=== PATIENT | female | born 1955 | race Caucasian/White ===

== ENCOUNTER 2018-04-08 09:48 | Outpatient (CLI) | payer OTHER ==
--- NOTE | 2018-04-08 14:08 | CT ---
CT THORACIC SPINE WITHOUT CONTRAST: INDICATIONS: History of back pain for two to three months with popping in the back with a history of spinal surger y. COMPARISON: Prior MRI of the thoracic spine, dated 04/22/2013. FINDINGS: There is scattered emphysema involving the lungs. There is scattered vascular calcification involvin g the thoracic aorta. No acute fracture or subluxation is evident. An ACDF plate is again seen at C 7-T1 with interbody cages seen at C6-C7 and C7-T1. There is mild multilevel disk degenerative diseas e that does not appear appreciably changed from the comparison MRI examination. There is exuberant f acet osteoarthrosis at T11-T12, greater on the right, causing some minimal to mild right osseous neur al foraminal encroachment that is likely stable on retrospective review. The facet osteoarthritic ch lamont is better seen on the current CT evaluation. No appreciable osseous central canal narrowing is grossly evident. No additional area of osseous neural foraminal narrowing is demonstrated. IMPRESSION: 1. Stable multilevel spondylosis of the thoracic spine. 2. There is moderate to severe facet osteoarthritic change at T11-T12, with some minimal to mild rig ht neural foraminal encroachment that, likely, on retrospective review of the prior MRI examination i s stable. The degree of facet osteoarthritic change is most evident on today's CT examination. 3. T1-T2 anterior cervical diskectomy and fusion plate appears similar to the comparison MRI examina tion. 4. Intervertebral disk cages at C6-C7 and at C7-T1. POS: [facility]
--- NOTE | 2018-04-08 15:51 | CT ---
CT LUMBAR SPINE NONCONTRAST: INDICATIONS: Low back pain. FINDINGS: T12-L1/L1-L2: At the T12-L1 and L1-L2 levels, there is no significant compromise of the central munira l or neural foramina. L2-L3: Disk osteophyte produces mild to moderate central canal stenosis. There is a lateralized dis k osteophyte component on the left, spanning the left foraminal through left extraforaminal zone, whi ch does result in moderate left foraminal stenosis. No high grade right foraminal compromise. L3-L4: Broad-based disk osteophyte, asymmetric to the left, results in moderate central canal stenos is, when combined with degenerative bilateral facet hypertrophy. There is mild to moderate bilateral neural foraminal narrowing. L4-L5: There is moderate central canal stenosis, as the result of an asymmetric right broad-based di sk osteophyte, with moderate right and mild left neural foraminal narrowing. L5-S1: Moderate central canal stenosis, as the result of a broad-based disk osteophyte. There is ga s vacuum phenomenon of the disk space. Moderate right and mild to moderate left neural foraminal nelson nosis is present. At the imaged retroperitoneum, there is vascular calcification. IMPRESSION: Multilevel degenerative change of the lumbar spine, as discussed above. POS: [facility]
== END 2018-04-08 09:49 | disposition home or self-care (01) ==
LOC: TBSIIMAG 09:48
PROVIDERS: ATTEND Neurological Surgery
DX: M54.5 Low back pain (principal); M54.6 Pain in thoracic spine; M47.814 Spondylosis without myelopathy or radiculopathy, thoracic region; M47.816 Spondylosis without myelopathy or radiculopathy, lumbar region; Z98.1 Arthrodesis status; Z98.890 Other specified postprocedural states
CPT/HCPCS: 72128; 72131

== ENCOUNTER 2018-11-18 10:14 | Outpatient (CLI) | payer OTHER ==
--- NOTE | 2018-11-18 11:33 | RAD ---
THORACIC SPINE 4 VIEWS: Date: 11/18/18 HISTORY: back pain FINDINGS: Postoperative changes in the cervical spine noted. There appear to be anterior plate and screws and d isc implant at C7-T1. Thoracic vertebra maintain height and alignment. Minimal degenerative spurring. Disc spaces are preserved. No compression deformity. No lytic or blastic process. No change in align ment of thoracic vertebra seen with flexion or extension. IMPRESSION: Postoperative changes in the cervical and cervicothoracic region as described. Unremarkable thoracic spine. POS: [facility]
--- NOTE | 2018-11-18 11:34 | RAD ---
LUMBAR SPINE THREE VIEWS: HISTORY: Back pain. Lumbar radiculopathy. TECHNIQUE: Lateral views obtained with neutral, flexion, and extension. FINDINGS: Lumbar vertebrae maintain height. Moderate degenerative changes are present throughout. Loss of dis k space is prominent at L3-L4. Slight posterior listhesis at L3-L4. This listhesis reduces slightly with extension. Facet hypertrophy is prominent. Osteophytes are prominent at L3-L4. IMPRESSION: Degenerative changes, as described. POS: [facility]
== END 2018-11-18 10:15 | disposition home or self-care (01) ==
LOC: TBSIIMAG 10:14
PROVIDERS: ATTEND Neurological Surgery
DX: M47.814 Spondylosis without myelopathy or radiculopathy, thoracic region (principal); M47.26 Other spondylosis with radiculopathy, lumbar region; Z98.890 Other specified postprocedural states
CPT/HCPCS: 72072; 72100

== ENCOUNTER 2018-12-02 13:35 | Outpatient (CLI) | payer OTHER ==
--- NOTE | 2018-12-02 16:15 | MRI ---
MRI LUMBAR SPINE NONCONTRAST: DATE: 12/02/18 HISTORY: 63-year-old female with lumbar spondylosis and lumbar radiculopathy. Low back pain that radiates to b ilateral lower extremities. COMPARISON: 08/10/14. FINDINGS: Transitional levels at thoracolumbar junction and lumbosacral junction. After review of CT of thoraci c spine of 04/08/[address] of lumbar spine of 04/08/18, it is evident that the level with tiny bilate ral accessory ribs is L1. The level of greatest lordotic angulation is L5-S1. The last lumbar type ve rtebra is L5, standard type. S1 is slightly partially lumbarized, with a partially developed S1-2 int ervertebral disc space. Vertebral body heights are maintained. 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 Interval development of Modic type I end plate narrow martinez es involving the left peripheral aspect of the L2-3 level. No other major bone marrow signal abnormal ity otherwise. There has been interval growth of laterally located right renal cyst, which currently measures 2.8 cm. T12-L1: Normal. L1-2: Essentially normal. L2-3: Interval development of mild disc space narrowing, worsening of diffuse disc bulge, and minimal degenerative retrolisthesis of L2 on L3. The disc bulge flattens the ventral aspect of the thecal sa c causing mild to moderate thecal sac stenosis. Mild central spinal canal stenosis. Interval developm ent of left lateral and far lateral broad based disc herniation/osteophytic bar complex that mildly d isplaces the left psoas muscle. A portion of this encroaches upon the left neural foramen causing mil d left neural foraminal stenosis. No right neural foraminal stenosis. L3-4: Mild disc space narrowing unchanged. Diffuse disc bulge unchanged. Mild left neural foraminal s tenosis. Mild to moderate right neural foraminal stenosis. Mild to moderate right degenerative facet hypertrophy. Mild to moderate central spinal canal stenosis with trefoil configuration. Moderate to s evere thecal sac stenosis. No significant interval change. L4-5: Again noted is the prominent Schmorl's node at inferior end plate of L4. Disc space maintained. Mild disc bulge. Moderate ligamentum flavum thickening. Moderate right facet DJD. Mild left facet DJ D. Asymmetrical right lateral and far lateral broad based chronic disc herniation. Moderate right nina ral foraminal stenosis. No significant left neural foraminal stenosis. Effacement of the right latera l aspect of thecal sac. Moderate central spinal canal stenosis. Moderate to severe thecal sac stenosi s, especially on the right. No major interval change. L5-S1: Moderate ligamentum flavum thickening. Somewhat severe right facet DJD and moderate left facet DJD. Diffuse disc bulge. Minimal disc space narrowing. Moderate to severe right neural foraminal nelson nosis. Moderate left neural foraminal stenosis. High grade right lateral recess stenosis, worse than before. Moderate central spinal canal stenosis and moderate to severe thecal sac stenosis, worse than before. IMPRESSION: 1. Lumbar spondylosis with degenerative disc disease and facet osteoarthrosis of varying degrees , worse than before at some levels. 2. Interval worsening of thecal sac stenosis and right lateral recess stenosis at L5-S1. 3. Moderate central spinal canal stenosis at L3-4 and L4-5, unchanged since 2015. MAGO De La Cruz POS: [facility]
== END 2018-12-02 13:36 | disposition home or self-care (01) ==
LOC: TBSIIMAG 13:35
PROVIDERS: ATTEND Neurological Surgery
DX: M43.16 Spondylolisthesis, lumbar region (principal); M47.26 Other spondylosis with radiculopathy, lumbar region; M51.16 Intervertebral disc disorders with radiculopathy, lumbar region; M48.061 Spinal stenosis, lumbar region without neurogenic claudication; M48.07 Spinal stenosis, lumbosacral region
CPT/HCPCS: 72148

== ENCOUNTER 2019-03-16 06:19 | Day surgery (SDC) | payer OTHER ==
[2019-03-13 10:54] VITALS: BMI 28.7
--- NOTE | 2019-03-15 08:28 | HP ---
HISTORY OF PRESENT ILLNESS: Ms. Fraser is a pleasant 63-year-old woman, here today to discuss severe lower back pain and a popping sensation as well as back and buttock pains, but also potential L5 pains into the bilateral lower extremities. She has been treating these with injections at Dr. Smith's office with variable results. She returns now with flexion-extension x-rays and MRI of the lumbar spine which showed progressive disease at L5-S1, which could certainly account for some of the L5 and buttock pains that she is having. She would like to move forward with surgery improvement in her symptoms. MEDICAL HISTORY: Significant for diabetes, chronic pain syndrome, and COPD. CURRENT MEDICATIONS: 1. Flonase. 2. Proventil. 3. Advair. 4. Tramadol. 5. Ibuprofen. 6. Baclofen. 7. Metformin. 8. Gabapentin. ALLERGIES: TO CODEINE AND NORCO. PHYSICAL EXAMINATION: The patient is alert and oriented x3. Gait is mildly antalgic. Lower extremity motor exam is normal. ASSESSMENT: Lumbar radiculopathy. PLAN: Dr. Denton met with the patient, reviewed imaging, advocated for bilateral L5-S1 decompressions. He explained to the patient the risks, benefits, and alternatives to the procedure. The patient expressed understanding and elected to move forward with surgery as discussed. I do believe the patient is mentally competent and capable of making medical decisions for herself. We will move forward with surgery as planned. Job ID: [id number]
[2019-03-16] MEDS ORDERED: Bupivacaine HCl 0.5%/Epinephrine 1:200,000/PF 30 ml Vial ONE (06:54)
[2019-03-16] MEDS ORDERED: Thrombin 5000 UNITS/5 ML VIAL ONE (06:54)
[2019-03-16 07:38] LABS: #Basophils 0.1 thou/uL (0.0-0.2); #Eosinphils 0.1 thou/uL (0.0-0.7); #Lymphocytes 1.5 thou/uL (1.20-3.40); #Monocytes 0.6 thou/uL (0.11-0.59); #Neutrophils 3.8 thou/uL (1.40-6.50); %Basophils 1.5 % (0.0-1.0); %Eosinophils 2.1 % (0.0-10.0); %Lymphocytes 24.3 % (21.0-51.0); %Monocytes 9.7 % (0.0-10.0); %Neutrophils 62.4 % (42.0-75.0); Hemoglobin 12.7 g/dL (12.0-16.0); Mean Corpuscular HGB CONC 34.2 g/dL (32.0-36.0); Mean Corpuscular Hemoglobin 32.9 pg (27.0-31.0); Mean Corpuscular Volume 96.3 fL (78.0-98.0); Mean Platelet Volume 7.7 fL (7.4-10.4); Platelet Count 287 thou/uL (130-400); RBC Distribution Width 10.9 % (11.5-14.5); Red Blood Cell (RBC) Count 3.86 mill/uL (4.20-5.40); White Blood Cell (WBC) Count 6.1 thou/uL (4.8-10.8)
[2019-03-16 08:02] LABS: Anion Gap 13 mmol/L (10-20); BUN (Urea Nitrogen) 19 mg/dL (9.8-20.1); Calc. Creatinine Clearance 102 mL/min (70-130); Calcium 8.9 mg/dL (7.8-10.44); Carbon Dioxide 22 mmol/L (23-31); Chloride 108 mmol/L (98-107); Estimated GFR-MDRD 83; Glucose 158 mg/dL (80-115); Potassium 4.2 mmol/L (3.5-5.1); Sodium 139 mmol/L (136-145)
[2019-03-16] MEDS ORDERED: Fentanyl 250 MCG/5 ML VIAL ONE (08:05)
[2019-03-16] MEDS ORDERED: Fentanyl 100 MCG/2 ML VIAL ONE ×3 (09:49→10:33)
[2019-03-16] MEDS ORDERED: Morphine 4 MG/ML VIAL ONE (10:05)
[2019-03-16] MEDS ORDERED: Morphine 2 MG/ML SYRINGE ONE ×2 (10:21→10:35)
--- NOTE | 2019-03-16 11:09 | OP ---
DATE OF PROCEDURE: 03/16/2019 [employer] ARCHITECT: Ramses Conway PA-C INDICATION: Pain. DIAGNOSIS: Bilateral L5 lateral recess stenosis with bilateral S1 radiculopathy. PROCEDURES PERFORMED: Bilateral L5-S1 decompressions. ANESTHESIA: General. DESCRIPTION OF PROCEDURE: The patient was brought into the operating room and placed under general anesthesia. She was flipped from the supine to prone position on the operating room table. A linear incision was planned over the L5-S1 segment. After prepping and draping and after an appropriate preoperative pause, the incision was created. The soft tissues were swept away from midline. A self-retaining retractor was placed in the wound for optimal exposure. After confirming the appropriate level with C-arm fluoroscopy, high-speed cutting drill bit as well as 2 and 3 mm Kerrisons were used to perform bilateral partial hemilaminectomies at L5-S1, which included superior aspect of the S1 lamina in order to decompress the descending S1 nerve roots within the lateral recess. After decompressing both sides, the wound was irrigated. Hemostasis was maintained throughout. The wound was then closed in anatomic layers and a pressure dressing was applied. There were no known procedural complications. Job ID: [id number]
[2019-03-16] MEDS ORDERED: diphenhydrAMINE 25 MG CAP ONE (13:29)
[2019-03-16] MEDS ORDERED: Rocuronium Bromide 10 MG/ML (10ML VIAL) ONE (14:57)
[2019-03-16] MEDS ORDERED: PROPOFOL 200 MG/20 ML VIAL ONE (14:57)
[2019-03-16] MEDS ORDERED: Glycopyrrolate 0.2 MG/ML 5 ML SYRINGE ONE (14:57)
[2019-03-16] MEDS ORDERED: PHENYLEPHRINE-NS 100 MCG/ML 10 ML SYRINGE ONE (14:57)
[2019-03-16] MEDS ORDERED: Ondansetron PF 4 MG/2 ML Vial ONE (14:57)
--- NOTE | 2019-03-16 16:27 | EKG ---
Test Reason : PREOP Blood Pressure : / mmHG Vent. Rate : 074 BPM Atrial Rate : 074 BPM P-R Int : 156 ms QRS Dur : 078 ms QT Int : 410 ms P-R-T Axes : 078 074 077 degrees QTc Int : 455 ms Sinus rhythm with Premature atrial complexes Otherwise normal ECG When compared with ECG of 11-JAN-2016 07:10, Premature atrial complexes are now Present Confirmed by DR. Ca AWAN ([id number]) on 03/16/2019 4:27:08 PM Referred By: ZENOBIA Confirmed By:DR. Ca AWAN
== END 2019-03-16 14:20 | disposition home or self-care (01) ==
LOC: SDC 06:19
PROVIDERS: ATTEND Neurological Surgery
PROC: 01NB0ZZ Release Lumbar Nerve, Open Approach (ICD-10-PCS; principal; 2019-03-16)
DX: M48.061 Spinal stenosis, lumbar region without neurogenic claudication (principal); M54.17 Radiculopathy, lumbosacral region; E11.9 Type 2 diabetes mellitus without complications; J44.9 Chronic obstructive pulmonary disease, unspecified; G89.4 Chronic pain syndrome; Z79.84 Long term (current) use of oral hypoglycemic drugs; Z79.899 Other long term (current) drug therapy; Z88.5 Allergy status to narcotic agent
CPT/HCPCS: 76000; 80048; 85025; 93005; 93010; J0131; J0670; J0690; J2270; J2405; J2704; J3010; Q0163

== ENCOUNTER 2021-03-27 12:56 | Outpatient (CLI) | payer MEDICARE, OTHER | END 2021-03-27 12:57 | disposition home or self-care (01) | LOC: BICCT 12:56 | PROVIDERS: ATTEND Neurological Surgery | DX: M54.12 Radiculopathy, cervical region (principal); M48.02 Spinal stenosis, cervical region; M25.78 Osteophyte, vertebrae; Z98.890 Other specified postprocedural states | CPT/HCPCS: 72125 ==

== ENCOUNTER 2021-05-22 11:54 | Outpatient (CLI) | payer MEDICARE, OTHER | END 2021-05-22 11:55 | disposition home or self-care (01) | LOC: TBSIIMAG 11:54 | PROVIDERS: ATTEND Neurological Surgery | DX: M47.12 Other spondylosis with myelopathy, cervical region (principal); M48.02 Spinal stenosis, cervical region; G95.89 Other specified diseases of spinal cord; Z98.1 Arthrodesis status | CPT/HCPCS: 72141 ==

== ENCOUNTER 2022-01-25 12:53 | Outpatient (CLI) | payer MEDICARE, OTHER ==
[2022-01-25 13:29] LABS: Bilirubin Neg (Negative); Blood, Urine Negative (Negative); Clarity Clear (Clear); Glucose, Urine (Dipstick) Normal (Negative); Ketone, Urine Negative (Negative); Leukocyte 25 (Negative); Nitrite Negative (Negative); Protein, Urine (Dipstick) 30 mg/dl (Neg-Trace); Urobilinogen Normal mg/dL (Less than 2)
[2022-01-25 13:37] LABS: #Basophils 0.1 10x3/uL (0.0-0.2); #Eosinphils 0.1 10x3/uL (0.0-0.5); #Monocytes 0.5 10x3/uL (0.0-1.1); #Neutrophils 3.8 10x3/uL (1.5-8.4); %Basophils 1.5 % (0.0-2.0); %Eosinophils 1.3 % (0.0-6.0); %Lymphocytes 28.3 % (18.0-47.0); %Monocytes 7.9 % (0.0-10.0); %Neutrophils 60.7 % (40.0-75.0); Hemoglobin 13.1 g/dL (12.0-15.5); Mean Corpuscular HGB CONC 34.8 g/dL (32.0-36.0); Mean Corpuscular Hemoglobin 32.5 pg (27.0-33.0); Mean Corpuscular Volume 93.3 fl (81.6-98.3); Platelet Count 315 10x3/uL (150-450); RBC Distribution Width 11.8 % (11.5-14.5); Red Blood Cell (RBC) Count 4.03 10x6/uL (3.90-5.03); White Blood Cell (WBC) Count 6.2 10x3/uL (3.5-10.5)
== END 2022-01-25 12:54 | disposition home or self-care (01) ==
LOC: LABBT 12:53
PROVIDERS: ATTEND Orthopaedic Surgery Hand Surgery
DX: Z01.818 Encounter for other preprocedural examination (principal); G56.22 Lesion of ulnar nerve, left upper limb; G56.02 Carpal tunnel syndrome, left upper limb; G56.12 Other lesions of median nerve, left upper limb; Z20.822 Contact with and (suspected) exposure to COVID-19
CPT/HCPCS: 81003; 85025; 87811; 93005; 93010

== ENCOUNTER 2022-01-29 13:25 | Day surgery (SDC) | payer MEDICARE, OTHER ==
[2022-01-26 10:16] VITALS: BMI 25.4
[2022-01-29] MEDS ORDERED: Thrombin 5000 UNITS/5 ML VIAL ONE (15:03)
[2022-01-29] MEDS ORDERED: Bupivacaine PF 0.5% 30 ML VIAL ONE (15:03)
[2022-01-29] MEDS ORDERED: Betamet Acet/Betamet Na Ph 30 MG/5 ML VIAL ONE (15:03)
[2022-01-29] MEDS ORDERED: Bupivacaine 0.25% HCL 30 ML VIAL ONE (15:03)
[2022-01-29] MEDS ORDERED: Bacitracin Zinc Ointment 30 gm TUBE ONE (15:03)
[2022-01-29] MEDS ORDERED: CEFAZOLIN 2 GM VIAL ONE (15:16)
[2022-01-29] MEDS ORDERED: Sodium Chloride 0.9% 100 ML ONE (15:16)
[2022-01-29] MEDS ORDERED: fentaNYL Citrate/PF 100 MCG/2 ML SYRINGE ONE (15:19)
[2022-01-29] MEDS ORDERED: ePHEDrine 50 MG/ML VIAL ONE (15:31)
[2022-01-29] MEDS ORDERED: Lidocaine 1% MPF 2 ML VIAL ONE (15:31)
[2022-01-29] MEDS ORDERED: Dexamethasone 20 MG/5 ML VIAL ONE (15:31)
[2022-01-29] MEDS ORDERED: Ketorolac Tromethamine 30 MG/ML VIAL ONE (15:31)
[2022-01-29] MEDS ORDERED: PROPOFOL 200 MG/20 ML VIAL ONE (15:31)
[2022-01-29] MEDS ORDERED: Ondansetron PF 4 MG/2 ML Vial ONE (15:31)
[2022-01-29] MEDS ORDERED: Fentanyl 100 MCG/2 ML VIAL ONE (18:32)
== END 2022-01-29 20:10 | disposition home or self-care (01) ==
LOC: SDC 13:25
PROVIDERS: ATTEND Orthopaedic Surgery Hand Surgery
PROC: 01N50ZZ Release Median Nerve, Open Approach (ICD-10-PCS; principal; 2022-01-29)
PROC: 01N40ZZ Release Ulnar Nerve, Open Approach (ICD-10-PCS; 2022-01-29)
PROC: 01N50ZZ Release Median Nerve, Open Approach (ICD-10-PCS; 2022-01-29)
DX: G56.12 Other lesions of median nerve, left upper limb (principal); G56.02 Carpal tunnel syndrome, left upper limb; G56.22 Lesion of ulnar nerve, left upper limb; E11.9 Type 2 diabetes mellitus without complications; K21.9 Gastro-esophageal reflux disease without esophagitis; I10 Essential (primary) hypertension; Z79.84 Long term (current) use of oral hypoglycemic drugs; Z79.899 Other long term (current) drug therapy; Z88.5 Allergy status to narcotic agent
CPT/HCPCS: C1713; J0690; J0702; J1100; J1885; J2405; J2704; J3010; J3490; S0020

== ENCOUNTER 2022-04-09 12:22 | Outpatient (CLI) | payer MEDICARE, OTHER | END 2022-04-09 12:23 | disposition home or self-care (01) | LOC: TBSIIMAG 12:22 | PROVIDERS: ATTEND Anesthesiology Pain Medicine | DX: M54.16 Radiculopathy, lumbar region (principal) | CPT/HCPCS: 72110; 72158; 82565 ==

== ENCOUNTER 2023-03-05 13:23 | Outpatient (CLI) | payer MEDICARE, OTHER | END 2023-03-05 13:24 | disposition home or self-care (01) | LOC: BICCT 13:23 | PROVIDERS: ATTEND Neurological Surgery | DX: M54.50 Low back pain, unspecified (principal); M25.78 Osteophyte, vertebrae; M47.816 Spondylosis without myelopathy or radiculopathy, lumbar region; M48.061 Spinal stenosis, lumbar region without neurogenic claudication; M48.07 Spinal stenosis, lumbosacral region; Z98.890 Other specified postprocedural states | CPT/HCPCS: 72131 ==

== ENCOUNTER 2023-03-11 14:13 | Outpatient (CLI) | payer MEDICARE, OTHER | END 2023-03-11 14:14 | disposition home or self-care (01) | LOC: BICRAD 14:13 | PROVIDERS: ATTEND Neurological Surgery | DX: M54.50 Low back pain, unspecified (principal) | CPT/HCPCS: 72120 ==

== ENCOUNTER 2023-04-15 05:42 | Observation (INO) | payer MEDICARE, OTHER ==
[2023-04-11 15:18] VITALS: BMI 26.6
[2023-04-15] MEDS ORDERED: EPINEPHrine 1 MG/ML VIAL ONE (06:10)
[2023-04-15] MEDS ORDERED: Thrombin 5000 UNITS/5 ML VIAL ONE ×2 (06:11→09:12)
[2023-04-15] MEDS ORDERED: Bupivacaine PF 0.5% 30 ML VIAL ONE (06:11)
[2023-04-15] MEDS ORDERED: CEFAZOLIN 2 GM VIAL ONE (06:45)
[2023-04-15] MEDS ORDERED: Sodium Chloride 0.9% 100 ML ONE ×2 (06:45→07:37)
[2023-04-15] MEDS ORDERED: fentaNYL PF 100 MCG/2 ML SYRINGE ONE (07:02)
[2023-04-15] MEDS ORDERED: PROPOFOL 20 ML ONE (07:02)
[2023-04-15] MEDS ORDERED: Lidocaine 1% PF 5 ML VIAL ONE ×2 (07:05→07:18)
[2023-04-15] MEDS ORDERED: Rocuronium Bromide 10 MG/ML (10ML VIAL) ONE ×2 (07:05→07:18)
[2023-04-15 07:07] LABS: Anion Gap 15 mmol/L (10-20); BUN (Urea Nitrogen) 21 mg/dL (9.8-20.1); Calc. Creatinine Clearance 83 mL/min (70-130); Calcium 9.8 mg/dL (7.8-10.44); Carbon Dioxide 24 mmol/L (23-31); Chloride 104 mmol/L (98-107); Estimated GFR 84; Glucose 185 mg/dL (80-115); Potassium 4.4 mmol/L (3.5-5.1); Sodium 139 mmol/L (136-145)
[2023-04-15] MEDS ORDERED: PHENYLEPHRINE-NS 100 MCG/ML 10 ML SYRINGE ONE (07:18)
[2023-04-15] MEDS ORDERED: Dexamethasone 20 MG/5 ML VIAL ONE (07:18)
[2023-04-15] MEDS ORDERED: Ondansetron PF 4 MG/2 ML Vial ONE ×2 (07:18→10:22)
[2023-04-15] MEDS ORDERED: ePHEDrine Sulfate 50 MG/10 ML VIAL ONE ×2 (07:18→08:25)
[2023-04-15] MEDS ORDERED: PROPOFOL 200 MG/20 ML VIAL ONE (07:18)
[2023-04-15] MEDS ORDERED: Esmolol 100 MG/10 ML VIAL ONE ×2 (07:18→07:23)
[2023-04-15] MEDS ORDERED: Dexmedetomidine 200 MCG/2 ML VIAL ONE (07:37)
[2023-04-15] MEDS ORDERED: Dexamethasone 4 mg/ml Vial ONE (10:22)
[2023-04-15] MEDS ORDERED: SUGAMMADEX SODIUM 200 MG/2 ML VIAL ONE (10:24)
[2023-04-15] MEDS ORDERED: fentaNYL 50 mcg/mL 1 mL Vial ONE ×2 (10:59→13:29)
[2023-04-15] MEDS ORDERED: Ketorolac Tromethamine 30 MG (1 mL) VIAL ONE (11:11)
[2023-04-15] MEDS ORDERED: HYDROmorphone 0.5 MG/0.5 ML SYRINGE ONE ×4 (11:12→12:07)
[2023-04-15] MEDS ORDERED: Morphine 4 MG/ML VIAL ONE (12:22)
[2023-04-15] MEDS ORDERED: Acetaminophen 325 MG TAB ONE (12:42)
[2023-04-15] MEDS ORDERED: Albuterol 2.5 MG (3 mL) NEB NEB PRN (15:12)
[2023-04-15] MEDS ORDERED: Ondansetron PF 4 MG/2 ML Vial IM PRN (15:44)
[2023-04-15] MEDS ORDERED: Acetaminophen 325 MG TAB PO PRN (15:45)
[2023-04-15] MEDS ORDERED: diphenhydrAMINE 50 MG/ML VIAL IVP PRN (15:45)
[2023-04-15] MEDS ORDERED: Acetaminophen 650 MG Suppository PR PRN (15:45)
[2023-04-15] MEDS: Morphine 2 MG/ML VIAL SLOW IVP PRN (16:37)
[2023-04-15] MEDS: CEFAZOLIN 2 GM in Sodium Chloride 0.9% 100 ML IVPB SCH (16:39)
[2023-04-15] MEDS: Sodium Chloride 0.9% 1,000 ML IV SCH (16:39)
[2023-04-15] MEDS: Carvedilol 6.25 MG TAB PO SCH (16:40)
[2023-04-15] MEDS: metFORMIN 500 MG TAB PO SCH (16:40)
[2023-04-15] MEDS ORDERED: BERBERINE PO SCH (21:00)
[2023-04-15] MEDS ORDERED: UBIDECARENONE PO SCH (21:00)
[2023-04-15] MEDS: Morphine 4 MG/ML VIAL SLOW IVP PRN (21:34)
[2023-04-15] MEDS: diphenhydrAMINE 25 MG CAP PO PRN (21:34)
[2023-04-15] MEDS: Atorvastatin Calcium 40 MG TAB PO SCH (21:36)
[2023-04-15] MEDS: Losartan 25 MG TAB PO SCH (21:36)
[2023-04-15] MEDS: Cholecalciferol 1,000 UNITS (25 MCG) TAB PO SCH (21:36)
[2023-04-16] MEDS: Losartan 25 MG TAB PO SCH (08:06)
[2023-04-16] MEDS: Famotidine 20 MG TAB PO SCH (08:07)
[2023-04-16] MEDS: Mometasone 200 MCG/Formoterol 5 MCG 120 PUFF INHALER INH SCH (08:31)
[2023-04-16 08:48] VITALS: BP 147/76; TEMP 98.1
[2023-04-16] MEDS ORDERED: TRULICITY SC SCH ×2 (09:00→10:45)
[2023-04-16] MEDS ORDERED: LINZESS PO SCH ×2 (09:00→10:45)
[2023-04-16] MEDS: Cyclobenzaprine 10 MG TAB PO PRN (10:08)
[2023-04-16] MEDS ORDERED: BERBERINE PO SCH (10:45)
[2023-04-16] MEDS ORDERED: UBIDECARENONE PO SCH (10:45)
== END 2023-04-16 10:32 | disposition home health service (06) ==
LOC: SURG A 05:42 → INTOOBSV 05:42 → UNDOADMOB 05:42 → SURG A 15:07 → T4-B 15:07 → UNDODISOB 04-16 10:32
PROVIDERS: ADMIT Neurological Surgery; ATTEND Neurological Surgery
PROC: 0SG00AJ Fusion of Lumbar Vertebral Joint with Interbody Fusion Device, Posterior Approach, Anterior Column, Open Approach (ICD-10-PCS; principal; 2023-04-15)
DX: M54.16 Radiculopathy, lumbar region (principal); Z88.5 Allergy status to narcotic agent; Z98.890 Other specified postprocedural states
CPT/HCPCS: 20930; 20936; 22633; 22852; 22853; 63052; 80048; 93005; C1713 ×3; C1889 ×2; J0171; J3010; 93010; J0665; J1100; J1170; J1885; J2270; J2272; J2405; J2704; J3490; J7050